=== PATIENT | male | born 1930 | race Caucasian/White ===

== ENCOUNTER 2017-07-06 13:49 | Inpatient (IN) | payer MEDICARE, BC ==
[~2017-07-06] VITALS: Ht 182.9 cm; Wt 67.1 kg
[~2017-07-06 13:49] MED LIST: ALBU18HF INH; AMLO5TAB2 PO; GLIP5TAB10 PO; GLIP5TAB22 PO; HYDR-3237 PO
[2017-07-06] MEDS ORDERED: SODIUM CHLORIDE 0.9% 1,000ML IVBOLUS ONE (14:30)
[2017-07-06] MEDS ORDERED: SODIUM CHLORIDE FLUSH 10ML SYR IVF ONE (14:30)
[2017-07-06 15:18] LABS: HEMATOCRIT 42.6 % (39.2-51.8); HEMOGLOBIN 13.7 g/dL (13.7-18.0); WHITE BLOOD COUNT 10.6 x10^3/uL (3.4-10)
[2017-07-06 15:32] LABS: ASPARTATE AMINO TRANSFERASE 12 U/L (15-37); BLOOD UREA NITROGEN 90 mg/dL (7-18)
[2017-07-06] MEDS ORDERED: D5%-0.45% NACL 1,000 ML IV SCH (16:45)
[2017-07-06] MEDS ORDERED: ONDANSETRON 2MG/ML, 2ML IVPush PRN (17:00)
[2017-07-06] MEDS ORDERED: ALBUTEROL SULFATE 2.5MG/0.5ML NPPB PRN (17:00)
[2017-07-06] MEDS ORDERED: LABETALOL 5MG/ML, 20ML IVPush PRN (17:00)
[2017-07-06] MEDS ORDERED: GUAIFENESIN/DM 200-20MG, 10ML UDC PO PRN (17:00)
[2017-07-06] MEDS ORDERED: ONDANSETRON ODT 4 MG PO PRN (17:00)
[2017-07-06] MEDS ORDERED: SODIUM CHLORIDE 0.45% 1,000 ML IV SCH (17:30)
[2017-07-06 17:56] LABS: BLOOD UREA NITROGEN 85 mg/dL (7-18)
[2017-07-06] MEDS ORDERED: PHARMACY MAY ADJ FOR RENAL FX MC PRN (18:00)
[2017-07-06] MEDS ORDERED: DEXTROSE 5% 1,000 ML IV SCH (18:00)
[2017-07-06 20:43] LABS: BLOOD UREA NITROGEN 83 mg/dL (7-18)
[2017-07-06] MEDS: FAMOTIDINE 20 MG/2 ML IVPush SCH (20:44)
[2017-07-06] MEDS: ENOXAPARIN 30 MG/0.3 ML SQ SCH (20:44)
[2017-07-06] MEDS: INSULIN DETEMIR 100 UNITS/ML, PEN SQ-INSULIN SCH (20:47)
[2017-07-06] MEDS: morphine SULFATE 10 MG/ML, 1ML IVPush PRN (21:55)
[2017-07-06] MEDS: CEFTAROLINE 600 MG in SODIUM CHLORIDE 0.9% 100 ML IV SCH (21:57)
[2017-07-06] MEDS: INSULIN ASPART 100 UNITS/ML, PEN SQ-INSULIN SCH (22:04)
[2017-07-07 02:06] LABS: BLOOD UREA NITROGEN 78 mg/dL (7-18)
[2017-07-07 03:35] LABS: HEMATOCRIT 39.8 % (39.2-51.8); HEMOGLOBIN 13.1 g/dL (13.7-18.0); WHITE BLOOD COUNT 9.9 x10^3/uL (3.4-10)
[2017-07-07 03:46] LABS: BLOOD UREA NITROGEN 77 mg/dL (7-18)
[2017-07-07] MEDS: CEFTAROLINE 600 MG in SODIUM CHLORIDE 0.9% 100 ML IV SCH (06:07)
[2017-07-07] MEDS: INSULIN DETEMIR 100 UNITS/ML, PEN SQ-INSULIN SCH (07:00)
[2017-07-07] MEDS: INSULIN ASPART 100 UNITS/ML, PEN SQ-INSULIN SCH ×4 (07:00→21:52)
[2017-07-07 09:20] LABS: BLOOD UREA NITROGEN 68 mg/dL (7-18)
[2017-07-07] MEDS: AMPICILLIN/SULBACTAM 3 GM in SODIUM CHLORIDE 0.9% 100 ML IV SCH ×3 (09:58→21:51)
[2017-07-07] MEDS: FAMOTIDINE 20 MG/2 ML IVPush SCH (09:59)
[2017-07-07] MEDS: LACTOBACILLUS CHEW TABLET PO SCH ×3 (09:59→21:51)
[2017-07-07 12:18] LABS: BLOOD UREA NITROGEN 64 mg/dL (7-18)
[2017-07-07] MEDS: D5%-0.45% NACL 1,000 ML IV SCH (15:29)
[2017-07-07] MEDS: ENOXAPARIN 30 MG/0.3 ML SQ SCH (16:27)
[2017-07-07] MEDS ORDERED: DEXTROSE 5% 1,000 ML IV SCH ×3 (18:00)
[2017-07-07 20:51] VITALS: BP 140/75
[2017-07-08 02:43] VITALS: BP 144/77
[2017-07-08] MEDS: D5%-0.45% NACL 1,000 ML IV SCH (03:41)
[2017-07-08] MEDS: AMPICILLIN/SULBACTAM 3 GM in SODIUM CHLORIDE 0.9% 100 ML IV SCH ×4 (03:41→20:12)
[2017-07-08 06:03] LABS: BLOOD UREA NITROGEN 52 mg/dL (7-18)
[2017-07-08 06:08] LABS: HEMATOCRIT 41.1 % (39.2-51.8); HEMOGLOBIN 13.6 g/dL (13.7-18.0); WHITE BLOOD COUNT 6.6 x10^3/uL (3.4-10)
[2017-07-08] MEDS: INSULIN ASPART 100 UNITS/ML, PEN SQ-INSULIN SCH ×4 (10:00→20:18)
[2017-07-08] MEDS: SODIUM CHLORIDE 0.45% 1,000 ML IV SCH (10:09)
[2017-07-08] MEDS: ENOXAPARIN 30 MG/0.3 ML SQ SCH (17:56)
[2017-07-09 02:00] VITALS: BP 140/75
[2017-07-09] MEDS: AMPICILLIN/SULBACTAM 3 GM in SODIUM CHLORIDE 0.9% 100 ML IV SCH ×4 (04:17→22:28)
[2017-07-09] MEDS: SODIUM CHLORIDE 0.45% 1,000 ML IV SCH ×2 (04:17→15:41)
[2017-07-09 06:42] LABS: BLOOD UREA NITROGEN 47 mg/dL (7-18)
[2017-07-09 06:57] VITALS: BP 132/75
[2017-07-09] MEDS: INSULIN ASPART 100 UNITS/ML, PEN SQ-INSULIN SCH ×4 (08:51→22:42)
[2017-07-09] MEDS: ENOXAPARIN 30 MG/0.3 ML SQ SCH (17:18)
[2017-07-09 20:00] VITALS: BP 132/69
[2017-07-09] MEDS: NEOSPORIN OINT. PKT 1 PACKET TP SCH (23:06)
[2017-07-10 02:00] VITALS: BP 148/56
[2017-07-10] MEDS: AMPICILLIN/SULBACTAM 3 GM in SODIUM CHLORIDE 0.9% 100 ML IV SCH ×3 (03:25→16:46)
[2017-07-10] MEDS: SODIUM CHLORIDE 0.45% 1,000 ML IV SCH ×2 (03:25→12:12)
[2017-07-10 07:58] LABS: BLOOD UREA NITROGEN 42 mg/dL (7-18)
[2017-07-10] MEDS: NEOSPORIN OINT. PKT 1 PACKET TP SCH ×2 (09:10→21:04)
[2017-07-10] MEDS: INSULIN ASPART 100 UNITS/ML, PEN SQ-INSULIN SCH ×4 (09:11→21:04)
[2017-07-10] MEDS: ENOXAPARIN 30 MG/0.3 ML SQ SCH (16:46)
[2017-07-10 20:18] VITALS: BP 158/78
[2017-07-11] MEDS: AMPICILLIN/SULBACTAM 3 GM in SODIUM CHLORIDE 0.9% 100 ML IV SCH ×3 (00:49→17:02)
[2017-07-11 01:56] VITALS: BP 138/62
[2017-07-11] MEDS: INSULIN ASPART 100 UNITS/ML, PEN SQ-INSULIN SCH ×4 (07:00→21:25)
[2017-07-11 07:55] VITALS: BP 138/69
[2017-07-11] MEDS: NEOSPORIN OINT. PKT 1 PACKET TP SCH ×2 (08:36→21:25)
[2017-07-11 15:03] VITALS: BP 130/73
[2017-07-11] MEDS: ENOXAPARIN 30 MG/0.3 ML SQ SCH (17:02)
[2017-07-11 20:14] VITALS: BP 117/70
[2017-07-12 01:00] VITALS: BP 125/69
[2017-07-12] MEDS: AMPICILLIN/SULBACTAM 3 GM in SODIUM CHLORIDE 0.9% 100 ML IV SCH ×2 (01:04→09:36)
[2017-07-12 05:47] LABS: HEMATOCRIT 36.3 % (39.2-51.8); HEMOGLOBIN 11.8 g/dL (13.7-18.0); WHITE BLOOD COUNT 5.3 x10^3/uL (3.4-10)
[2017-07-12] MEDS: INSULIN ASPART 100 UNITS/ML, PEN SQ-INSULIN SCH ×4 (07:00→20:44)
[2017-07-12 08:30] VITALS: BP 143/78
[2017-07-12] MEDS: NEOSPORIN OINT. PKT 1 PACKET TP SCH (09:36)
[2017-07-12 13:30] VITALS: BP 136/69
[2017-07-12] MEDS: ENOXAPARIN 30 MG/0.3 ML SQ SCH (17:12)
[2017-07-12 19:13] VITALS: BP 137/73
[2017-07-12] MEDS: DOXYCYCLINE 50 MG/5 ML ORAL SUSP PEG SCH (20:46)
[2017-07-12] MEDS: CLOTRIMAZOLE CRM 1%, 15GM TP SCH (20:46)
[2017-07-13 01:21] VITALS: BP 157/70
[2017-07-13 05:46] LABS: BLOOD UREA NITROGEN 35 mg/dL (7-18)
[2017-07-13 07:17] VITALS: BP 139/70
[2017-07-13] MEDS: DOXYCYCLINE 50 MG/5 ML ORAL SUSP PEG SCH ×2 (09:42→21:55)
[2017-07-13] MEDS: INSULIN ASPART 100 UNITS/ML, PEN SQ-INSULIN SCH ×4 (09:43→22:00)
[2017-07-13] MEDS: CLOTRIMAZOLE CRM 1%, 15GM TP SCH ×2 (11:34→21:55)
[2017-07-13 13:32] VITALS: BP 143/76
[2017-07-13] MEDS: ENOXAPARIN 40 MG/0.4 ML SQ SCH (17:42)
[2017-07-13 19:23] VITALS: BP 145/62
[2017-07-13] MEDS: morphine SULFATE 10 MG/ML, 1ML IVPush PRN (21:55)
[2017-07-14 01:13] VITALS: BP 103/64
[2017-07-14 07:20] VITALS: BP 107/64
[2017-07-14] MEDS: morphine SULFATE 10 MG/ML, 1ML IVPush PRN ×3 (08:27→14:25)
[2017-07-14] MEDS: DOXYCYCLINE 50 MG/5 ML ORAL SUSP PEG SCH ×2 (08:37→21:35)
[2017-07-14] MEDS: INSULIN ASPART 100 UNITS/ML, PEN SQ-INSULIN SCH ×4 (08:37→21:39)
[2017-07-14] MEDS: CLOTRIMAZOLE CRM 1%, 15GM TP SCH ×2 (08:38→21:35)
[2017-07-14] MEDS ORDERED: DOXY50SY PEG (09:50)
[2017-07-14] MEDS ORDERED: CLOT15CR5 TP (09:50)
[2017-07-14 10:45] LABS: BLOOD UREA NITROGEN 40 mg/dL (7-18)
[2017-07-14 12:33] VITALS: BP 104/57
[2017-07-14] MEDS: ENOXAPARIN 40 MG/0.4 ML SQ SCH (16:56)
[2017-07-14 20:00] VITALS: BP 115/70
[2017-07-15 02:00] VITALS: BP 102/61
[2017-07-15] MEDS: morphine SULFATE 10 MG/ML, 1ML IVPush PRN ×3 (02:43→16:52)
[2017-07-15 08:00] VITALS: BP 97/57
[2017-07-15] MEDS: CLOTRIMAZOLE CRM 1%, 15GM TP SCH ×2 (08:53→21:03)
[2017-07-15] MEDS: INSULIN ASPART 100 UNITS/ML, PEN SQ-INSULIN SCH ×4 (08:54→21:03)
[2017-07-15] MEDS: DOXYCYCLINE 50 MG/5 ML ORAL SUSP PEG SCH ×2 (08:54→21:02)
[2017-07-15] MEDS ORDERED: POLYETHYLENE GLYCOL 17 GM PACKET PO PRN (15:30)
[2017-07-15] MEDS: ENOXAPARIN 40 MG/0.4 ML SQ SCH (16:45)
[2017-07-15 19:55] VITALS: BP 104/58
[2017-07-16] MEDS: morphine SULFATE 10 MG/ML, 1ML IVPush PRN ×2 (01:23→10:45)
[2017-07-16 01:32] VITALS: BP 110/62
[2017-07-16 07:30] VITALS: BP 108/64
[2017-07-16] MEDS: INSULIN ASPART 100 UNITS/ML, PEN SQ-INSULIN SCH ×3 (10:46→16:00)
[2017-07-16] MEDS: DOXYCYCLINE 50 MG/5 ML ORAL SUSP PEG SCH (10:46)
[2017-07-16] MEDS: CLOTRIMAZOLE CRM 1%, 15GM TP SCH (10:48)
[2017-07-16] MEDS ORDERED: MAGNESIUM CITRATE 300ML ORAL SOL GT ONE (12:30)
[2017-07-16 13:15] VITALS: BP 93/52
[2017-07-16] MEDS: ENOXAPARIN 40 MG/0.4 ML SQ SCH (17:00)
[2017-07-16] MEDS ORDERED: FLU VACC QS2017-18 (36MOS+) UP/PF 0.5 ML IM-VACC ONE (17:00)
== END 2017-07-16 16:50 | DRG 393 ==
LOC: ED 17:55 → EDIP 18:13 → CCU 20:00 → 4WST 07-07 19:31 → 4EST 07-07 20:39
PROVIDERS: ADMIT Hospitalist; ATTEND Hospitalist
PROC: 0DH63UZ Insertion of Feeding Device into Stomach, Percutaneous Approach (ICD-10-PCS; principal; 2017-07-12)
DX: K94.22 Gastrostomy infection (principal); E43 Unspecified severe protein-calorie malnutrition; G92 Toxic encephalopathy; E11.649 Type 2 diabetes mellitus with hypoglycemia without coma; E11.65 Type 2 diabetes mellitus with hyperglycemia; R13.12 Dysphagia, oropharyngeal phase; E87.0 Hyperosmolality and hypernatremia; G20 Parkinson's disease; C61 Malignant neoplasm of prostate; D72.829 Elevated white blood cell count, unspecified; Z68.1 Body mass index [BMI] 19.9 or less, adult; Z66 Do not resuscitate; M06.9 Rheumatoid arthritis, unspecified; R26.2 Difficulty in walking, not elsewhere classified; E86.0 Dehydration; Y83.8 Other surgical procedures as the cause of abnormal reaction of the patient, or of later complication, without mention of misadventure at the time of the procedure; Y82.8 Other medical devices associated with adverse incidents; G25.0 Essential tremor; Z80.41 Family history of malignant neoplasm of ovary; Z90.79 Acquired absence of other genital organ(s); Z80.0 Family history of malignant neoplasm of digestive organs; Z80.6 Family history of leukemia; Z85.46 Personal history of malignant neoplasm of prostate; Z87.891 Personal history of nicotine dependence
CPT/HCPCS: 36415; 70450; 71010; 74230; 76705; 80048; 80053; 81003; 82140; 82607; 82746; 82962; 83036; 83605; 83735; 84100; 84145; 84439; 84443; 85025; 85610; 85651; 85730; 86140; 87040; 87081; 93005; 96360; 96361; J0295; J0712; J1650; J1815; J7070; J2270; J7030; S0028

== ENCOUNTER 2017-08-13 21:51 | Inpatient (IN) | payer MEDICARE, BC ==
[~2017-08-13] VITALS: Ht 185.4 cm; Wt 68.8 kg
[~2017-08-13 21:51] MED LIST changes: +CLOT15CR5 TP; +DOXY50SY PEG
[2017-08-13] MEDS ORDERED: SODIUM CHLORIDE 0.9% 1,000ML IVBOLUS ONE (23:00)
[2017-08-13 23:13] LABS: HEMATOCRIT 37.2 % (39.2-51.8); HEMOGLOBIN 12.4 g/dL (13.7-18.0); WHITE BLOOD COUNT 8.9 x10^3/uL (3.4-10)
[2017-08-13 23:24] LABS: ASPARTATE AMINO TRANSFERASE 18 U/L (15-37)
[2017-08-13 23:30] LABS: DIFF TOTAL CELLS COUNTED 100 CELL DIFF
[2017-08-13 23:32] LABS: VERIFY COUNTS? YES
[2017-08-13 23:33] LABS: ANISOCYTOSIS 1+; LARGE PLATELETS 1+; POIKILOCYTOSIS 1+
[2017-08-13 23:47] LABS: BLOOD UREA NITROGEN 114 mg/dL (7-18)
[2017-08-14] MEDS ORDERED: ACETAMINOPHEN 325 MG TABLET PO PRN (00:30)
[2017-08-14] MEDS ORDERED: DOCUSATE 100 MG CAPSULE PO PRN (00:30)
[2017-08-14 00:57] VITALS: BP 102/60
[2017-08-14] MEDS: SODIUM CHLORIDE 0.9% 1,000 ML IV SCH ×3 (01:27→21:16)
[2017-08-14] MEDS ORDERED: ALBUTEROL SULFATE 2.5 MG/3 ML NPPB PRN (01:30)
[2017-08-14] MEDS: HEPARIN 5,000 UNITS/ML, 1ML SQ SCH ×3 (04:59→21:00)
[2017-08-14 08:55] VITALS: BP 103/61
[2017-08-14] MEDS: CLOTRIMAZOLE CRM 1%, 15GM TP SCH ×2 (09:00→21:00)
[2017-08-14] MEDS: AMLODIPINE 5 MG TABLET PO SCH (09:00)
[2017-08-14 10:55] LABS: HEMATOCRIT 37.4 % (39.2-51.8); HEMOGLOBIN 12.4 g/dL (13.7-18.0); WHITE BLOOD COUNT 8.7 x10^3/uL (3.4-10)
[2017-08-14] MEDS: INSULIN ASPART 100 UNITS/ML, PEN SQ-INSULIN SCH ×3 (11:00→21:00)
[2017-08-14 11:07] LABS: BLOOD UREA NITROGEN 99 mg/dL (7-18)
[2017-08-14 11:19] LABS: DIFF TOTAL CELLS COUNTED 100 CELL DIFF
[2017-08-14 11:21] LABS: ANISOCYTOSIS 1+; VERIFY COUNTS? YES
[2017-08-14 14:58] VITALS: BP 102/67
[2017-08-14 22:41] VITALS: BP 111/54
[2017-08-15 03:14] VITALS: BP 127/71
[2017-08-15] MEDS: HEPARIN 5,000 UNITS/ML, 1ML SQ SCH ×3 (05:00→21:00)
[2017-08-15 06:02] LABS: HEMATOCRIT 35.9 % (39.2-51.8); HEMOGLOBIN 11.8 g/dL (13.7-18.0); WHITE BLOOD COUNT 8.9 x10^3/uL (3.4-10)
[2017-08-15 06:07] LABS: BLOOD UREA NITROGEN 78 mg/dL (7-18)
[2017-08-15] MEDS: SODIUM CHLORIDE 0.9% 1,000 ML IV SCH (06:37)
[2017-08-15] MEDS: AMLODIPINE 5 MG TABLET PO SCH (09:00)
[2017-08-15] MEDS: CLOTRIMAZOLE CRM 1%, 15GM TP SCH ×2 (09:00→21:15)
[2017-08-15 09:10] VITALS: BP 110/44
[2017-08-15] MEDS: INSULIN ASPART 100 UNITS/ML, PEN SQ-INSULIN SCH ×4 (09:38→21:00)
[2017-08-15] MEDS: D5%-0.45% NACL 1,000 ML IV SCH ×2 (13:39→21:16)
[2017-08-15 14:05] VITALS: BP 125/62
[2017-08-15 19:19] VITALS: BP 127/73
[2017-08-16 01:35] VITALS: BP 133/66
[2017-08-16] MEDS ORDERED: FUROSEMIDE 40 MG/4 ML IV ONE (03:00)
[2017-08-16] MEDS: HEPARIN 5,000 UNITS/ML, 1ML SQ SCH ×3 (05:00→20:44)
[2017-08-16 07:51] VITALS: BP 109/59
[2017-08-16] MEDS: INSULIN ASPART 100 UNITS/ML, PEN SQ-INSULIN SCH ×4 (08:06→20:45)
[2017-08-16] MEDS: CLOTRIMAZOLE CRM 1%, 15GM TP SCH ×2 (09:00→20:45)
[2017-08-16] MEDS: AMLODIPINE 5 MG TABLET PO SCH (09:00)
[2017-08-16] MEDS ORDERED: FUROSEMIDE 20 MG/2 ML IV ONE (09:30)
[2017-08-16] MEDS: CEFTRIAXONE PMX 1GM/50ML 50 ML IV SCH (12:16)
[2017-08-16] MEDS: DOXYCYCLINE 100 MG in DEXTROSE 5% 250 ML IV SCH (12:54)
[2017-08-16 13:43] LABS: HEMATOCRIT 41.2 % (39.2-51.8); HEMOGLOBIN 13.4 g/dL (13.7-18.0); WHITE BLOOD COUNT 14.3 x10^3/uL (3.4-10)
[2017-08-16 13:54] LABS: BLOOD UREA NITROGEN 59 mg/dL (7-18)
[2017-08-16 14:04] VITALS: BP 101/68
[2017-08-16 14:21] LABS: DIFF TOTAL CELLS COUNTED 100 CELL DIFF
[2017-08-16 14:48] LABS: ANISOCYTOSIS 1+; POLYCHROMASIA 1+; VERIFY COUNTS? YES
[2017-08-16] MEDS ORDERED: ALBUTEROL/IPRATROPIUM 2.5MG/0.5MG, 3 ML NPPB SCH (15:00)
[2017-08-16 15:05] LABS: IS PT STATUS REG ER OR PRE ER? NO
[2017-08-16] MEDS: SODIUM CHLORIDE INHALATION 3%, 4 ML NPPB SCH ×2 (17:16→23:57)
[2017-08-16] MEDS ORDERED: MAGNESIUM SULFATE PMX 2GM/50ML 50 ML IV ONE (17:30)
[2017-08-16] MEDS ORDERED: DILTIAZEM 5 MG/ML, 5ML IVPush ONE (17:30)
[2017-08-16] MEDS: ASPIRIN 81 MG TABLET CHEW PO SCH (17:30)
[2017-08-16] MEDS ORDERED: DOCUSATE 100 MG CAPSULE PO PRN (20:00)
[2017-08-16] MEDS ORDERED: ACETAMINOPHEN 325 MG TABLET PO PRN (20:00)
[2017-08-16 20:10] VITALS: BP_SYST 84; BP_SYST 87; BP_DIAS 43; BP_DIAS 46
[2017-08-16 20:29] LABS: IS PT STATUS REG ER OR PRE ER? YES
[2017-08-16 21:31] VITALS: BP 102/56
[2017-08-17] MEDS: DOXYCYCLINE 100 MG in DEXTROSE 5% 250 ML IV SCH ×2 (00:47→13:55)
[2017-08-17 01:43] VITALS: BP 92/48
[2017-08-17 05:20] LABS: HEMATOCRIT 34.5 % (39.2-51.8); HEMOGLOBIN 11.6 g/dL (13.7-18.0)
[2017-08-17 05:26] LABS: BLOOD UREA NITROGEN 64 mg/dL (7-18)
[2017-08-17] MEDS: HEPARIN 5,000 UNITS/ML, 1ML SQ SCH ×3 (05:30→20:12)
[2017-08-17 06:59] VITALS: BP 111/62
[2017-08-17] MEDS: INSULIN ASPART 100 UNITS/ML, PEN SQ-INSULIN SCH ×4 (08:15→20:12)
[2017-08-17] MEDS: ASPIRIN 81 MG TABLET CHEW PO SCH (08:16)
[2017-08-17] MEDS: AMLODIPINE 5 MG TABLET PO SCH (08:16)
[2017-08-17] MEDS: CLOTRIMAZOLE CRM 1%, 15GM TP SCH ×2 (08:17→20:16)
[2017-08-17] MEDS: SODIUM CHLORIDE INHALATION 3%, 4 ML NPPB SCH ×2 (10:23→16:57)
[2017-08-17] MEDS: CEFTRIAXONE PMX 1GM/50ML 50 ML IV SCH (11:17)
[2017-08-17 12:15] VITALS: BP 102/67
[2017-08-17] MEDS: DOXYCYCLINE 50 MG/5 ML ORAL SUSP PO SCH ×2 (15:46→20:16)
[2017-08-17] MEDS ORDERED: ACETAMINOPHEN 325 MG TABLET PO PRN (18:30)
[2017-08-17] MEDS ORDERED: DOCUSATE 100 MG CAPSULE PO PRN (18:30)
[2017-08-17 20:42] VITALS: BP 120/66
[2017-08-17] MEDS ORDERED: SODIUM CHLORIDE INHALATION 3%, 4 ML NPPB SCH (21:00)
[2017-08-18 01:51] VITALS: BP 119/73
[2017-08-18] MEDS: SODIUM CHLORIDE INHALATION 3%, 4 ML NPPB SCH ×4 (03:00→21:00)
[2017-08-18 04:51] LABS: HEMATOCRIT 32.9 % (39.2-51.8); HEMOGLOBIN 11.1 g/dL (13.7-18.0); WHITE BLOOD COUNT 7.8 x10^3/uL (3.4-10)
[2017-08-18 05:03] LABS: BLOOD UREA NITROGEN 62 mg/dL (7-18)
[2017-08-18 05:08] LABS: ASPARTATE AMINO TRANSFERASE 26 U/L (15-37)
[2017-08-18] MEDS: HEPARIN 5,000 UNITS/ML, 1ML SQ SCH ×3 (06:09→21:44)
[2017-08-18 07:03] VITALS: BP 122/64
[2017-08-18] MEDS: INSULIN ASPART 100 UNITS/ML, PEN SQ-INSULIN SCH ×4 (07:28→21:48)
[2017-08-18] MEDS: AMLODIPINE 5 MG TABLET PO SCH (08:40)
[2017-08-18] MEDS: CLOTRIMAZOLE CRM 1%, 15GM TP SCH ×2 (08:40→21:45)
[2017-08-18] MEDS: DOXYCYCLINE 50 MG/5 ML ORAL SUSP PO SCH ×2 (08:40→21:44)
[2017-08-18] MEDS: ASPIRIN 81 MG TABLET CHEW PO SCH (08:40)
[2017-08-18] MEDS: CEFTRIAXONE PMX 1GM/50ML 50 ML IV SCH (11:00)
[2017-08-18 12:30] VITALS: BP 133/68
[2017-08-18 20:16] VITALS: BP 125/66
[2017-08-19 02:58] VITALS: BP 118/69
[2017-08-19] MEDS: HEPARIN 5,000 UNITS/ML, 1ML SQ SCH ×2 (05:14→13:00)
[2017-08-19 07:00] VITALS: BP 133/66
[2017-08-19] MEDS: INSULIN ASPART 100 UNITS/ML, PEN SQ-INSULIN SCH ×2 (07:00→11:00)
[2017-08-19] MEDS: CLOTRIMAZOLE CRM 1%, 15GM TP SCH (10:02)
[2017-08-19] MEDS: DOXYCYCLINE 50 MG/5 ML ORAL SUSP PO SCH (10:02)
[2017-08-19] MEDS: ASPIRIN 81 MG TABLET CHEW PO SCH (10:02)
[2017-08-19] MEDS: AMLODIPINE 5 MG TABLET PO SCH (10:02)
[2017-08-19] MEDS: CEFTRIAXONE PMX 1GM/50ML 50 ML IV SCH (11:00)
[2017-08-19 13:09] VITALS: BP 118/52
[2017-08-19] MEDS ORDERED: CEFD300C37 PO (15:39)
[2017-08-19] MEDS ORDERED: ASPI-496 PO (15:40)
== END 2017-08-19 16:35 | DRG 177 ==
LOC: ED 23:39 → EDIP 08-14 00:01 → 4EST 08-14 01:06
PROVIDERS: ADMIT Family Medicine; ATTEND Hospitalist
DX: J69.0 Pneumonitis due to inhalation of food and vomit (principal); E43 Unspecified severe protein-calorie malnutrition; J96.00 Acute respiratory failure, unspecified whether with hypoxia or hypercapnia; G92 Toxic encephalopathy; N17.9 Acute kidney failure, unspecified; N18.4 Chronic kidney disease, stage 4 (severe); E87.0 Hyperosmolality and hypernatremia; R13.10 Dysphagia, unspecified; D68.69 Other thrombophilia; E11.22 Type 2 diabetes mellitus with diabetic chronic kidney disease; E11.65 Type 2 diabetes mellitus with hyperglycemia; I48.2 Chronic atrial fibrillation; E79.0 Hyperuricemia without signs of inflammatory arthritis and tophaceous disease; G20 Parkinson's disease; M06.9 Rheumatoid arthritis, unspecified; R29.6 Repeated falls; Z66 Do not resuscitate; G25.0 Essential tremor; E86.0 Dehydration; R62.7 Adult failure to thrive; D63.8 Anemia in other chronic diseases classified elsewhere; Z68.20 Body mass index [BMI] 20.0-20.9, adult; Z80.0 Family history of malignant neoplasm of digestive organs; Z80.41 Family history of malignant neoplasm of ovary; Z80.6 Family history of leukemia; Z85.46 Personal history of malignant neoplasm of prostate; Z87.891 Personal history of nicotine dependence; Z90.79 Acquired absence of other genital organ(s); Z93.1 Gastrostomy status
CPT/HCPCS: 36415; 70450; 71010; 80048; 80053; 81001; 82962; 83735; 83880; 84145; 84443; 84484; 85025; 87040; 87070; 87086; 87147; 87186; 87205; 93005; 93306; 94640; 96360; J0696; J1644; J1815; J1940; J7060; J3475; J7030

== ENCOUNTER 2018-09-22 10:29 | Inpatient (IN) | payer MEDICARE ==
[~2018-09-22] VITALS: Ht 177.8 cm; Wt 71.8 kg
[~2018-09-22 10:29] MED LIST changes: +AMLO-150 PO; -AMLO5TAB2 PO; +ASPI-496 PO; +CEFD300C37 PO; +MIDAZOLAM 1 MG/ML, 5ML ONE; +ROCURONIUM 10 MG/ML,10ML ONE
--- NOTE | 2018-09-22 10:50 | NUR ---
BIB PAUL. called 911 for AMS x several weeks, worse today. Oriented to self and place, not time. Hx parkinson's with bilat stimulators in chest. It appears as if the stimulator is growing out of his left scalp. Per , patient saw PCP for this wound and complete a week of Abx. Uses feeding tube in ABD for all intake. May take ice chips only PO. Mucous membrnaes dry. 500 NSmL admin by PAUL. at bedside. Will continue to monitor.
--- NOTE | 2018-09-22 11:20 | NUR ---
SPOKE WITH MD HUTTON IN DELAY OF ABX THERAPY FOR SEPTIC PT. DR. HUTTON WOULD LIKE TO WAIT UNTIL HE DOES THE LP AND CT OF THE HEAD IS COMPLETED PRIOR TYO ABX THERAPY BEING STARTED. SUP ANNETTE [place] INFORMED OF MD DECSION AND DELAY.
[2018-09-22] MEDS ORDERED: SODIUM CHLORIDE FLUSH 10ML SYR IVF ONE (11:30)
[2018-09-22] MEDS ORDERED: VANCOMYCIN PER PHARMACY MC ONE (11:30)
[2018-09-22] MEDS ORDERED: CEFTRIAXONE PMX 1GM/50ML 50 ML IVPB ONE (11:30)
[2018-09-22] MEDS ORDERED: VANCOMYCIN 1,100 MG in SODIUM CHLORIDE 0.9% 250 ML IV ONE (11:30)
[2018-09-22] MEDS ORDERED: SODIUM CHLORIDE 0.9% 1,000ML IVBOLUS ONE (11:30)
[2018-09-22] MEDS ORDERED: CEFTRIAXONE PMX 1GM/50ML 50 ML ONE (11:45)
[2018-09-22 11:46] LABS: BASOPHILS # (AUTO) 0.02 x10^3/uL (0-0.1); BASOPHILS % (AUTO) 0 % (0-1); EOSINOPHILS # (AUTO) 0.09 x10^3/uL (0-0.4); EOSINOPHILS % (AUTO) 1 % (1-7); LYMPHOCYTES # (AUTO) 0.57 x10^3/uL (1-3.4); LYMPHOCYTES % (AUTO) 4 % (22-44); MD NO; MEAN CORPUSCULAR HEMOGLOBIN 31.5 pg (27.5-34.5); MEAN CORPUSCULAR HGB CONC 32.4 g/dL (33.2-36.2); MEAN CORPUSCULAR VOLUME 97.4 fL (81-97); MEAN PLATELET VOLUME 11.3 fL (7.4-10.4); MONOCYTES # (AUTO) 0.46 x10^3/uL (0.2-0.8); MONOCYTES % (AUTO) 4 % (2-9); NEUTROPHILS # (AUTO) 11.99 x10^3/uL (1.8-6.8); NEUTROPHILS % (AUTO) 91 % (42-75); PLATELET COUNT 167 x10^3/uL (130-400); RED BLOOD COUNT 4.38 x10^6/uL (4.38-5.82); RED CELL DISTRIBUTION WIDTH 15.9 % (9.4-14.8)
[2018-09-22 11:55] LABS: INTERNATIONAL NORMALIZED RATIO 1.14 (0.93-1.1)
[2018-09-22 11:56] LABS: ALBUMIN 3.3 g/dL (3.4-5.0); ANION GAP 7 mmol/L (5-15); CALCIUM 9.4 mg/dL (8.5-10.1); CHLORIDE 128 mmol/L (98-107)
[2018-09-22 12:09] LABS: ALANINE AMINOTRANSFERASE 24 U/L (12-78); ALKALINE PHOSPHATASE 83 U/L (45-117); BILIRUBIN,TOTAL 0.7 mg/dL (0.2-1.0); CREATININE 2.78 mg/dL (0.7-1.3); TOTAL PROTEIN 8.1 g/dL (6.4-8.2)
[2018-09-22] MEDS ORDERED: LORazepam 2 MG/ML, 1ML ONE (12:33)
[2018-09-22] MEDS ORDERED: LIDOCAINE-MPF 1%, 5ML ONE (12:37)
--- NOTE | 2018-09-22 12:56 | NUR ---
ATTEMTPED LP X2 PER EMT AND NO CSF ACQUIRED.
[2018-09-22] MEDS ORDERED: LORazepam 2 MG/ML, 1ML IVPush ONE (13:00)
--- NOTE | 2018-09-22 13:00 | NUR ---
OSIEL BRYANT NOTE: ASSISTED MD HUTTON WITH LEILANI HEALY WITH LP. PATIE TOERATED FAIRLY WELL. PATIENT MEDICATED WITH ATIVAN. UPDATED ON PLAN OF CARE.
--- NOTE | 2018-09-22 13:16 | NUR ---
IVF BOLUS AND ABX THERAPYS STARTED. PT IS SLEEPING COMFORTABELY. NO DISTRESS NOTED.
[2018-09-22 13:51] LABS: ANION GAP 7 mmol/L (5-15); CHLORIDE 131 mmol/L (98-107); CREATININE 2.63 mg/dL (0.7-1.3)
[2018-09-22] MEDS ORDERED: SODIUM CHLORIDE 0.9% 1,000 ML IV SCH (13:58)
[2018-09-22] MEDS ORDERED: ONDANSETRON 2MG/ML, 2ML IVPush PRN (14:00)
--- NOTE | 2018-09-22 14:17 | NUR ---
LATE ENTRY, PT STILL COLD. HOT LINE STARTED WITH [facility] FLUIDS PER DR. JULIAN. PT REPOSITIONED IN BED. O2 REMAINS STABLE.
[2018-09-22] MEDS ORDERED: CALCIUM CHLORIDE 10%, 10ML SYR IVPush ONE (14:30)
[2018-09-22] MEDS ORDERED: VANCOMYCIN PER PHARMACY MC PRN (14:30)
--- NOTE | 2018-09-22 14:52 | NUR ---
NEPHRO, HOSPITALIST AND VENDORE REP TO BEDSIDE.
--- NOTE | 2018-09-22 14:52 | NUR ---
PT TO CONTINUE TO HAVE WARM FLUIDS. NEPHROLOGY WOULD LIKE ONLY 1 L OF NS AT THIS TIME.
--- NOTE | 2018-09-22 15:23 | NUR ---
PT TRANSFERRED TO PRE OP. NO COMPLICATIONS. OR TO BRING HOT LINE BACK AND GURNEY. SURGEON AT BEDSIDE AND WANTING TO DO ID IN OR NOW. REPORTED TO SURGEON THAT PT CANNOT GIVE CONSENT AND WILL BE TO PRE OP TO GIVE AND SIGN CONSENT.
[2018-09-22] MEDS ORDERED: REMIFENTANIL 2 MG ONE (15:38)
[2018-09-22] MEDS ORDERED: BACITRACIN 50,000 UNIT ONE (15:41)
[2018-09-22] MEDS: INSULIN LISPRO 100 UNITS/ML, PEN SQ-INSULIN SCH ×2 (16:00→21:00)
[2018-09-22] MEDS ORDERED: ROCURONIUM 10 MG/ML,10ML ONE (16:10)
[2018-09-22] MEDS ORDERED: ETOMIDATE 20 MG/10 ML ONE (16:10)
[2018-09-22] MEDS ORDERED: PROPOFOL 10 MG/ML, 20ML ONE (16:10)
[2018-09-22] MEDS ORDERED: BACITRACIN OINT 500U/GM, 15 GM ONE (16:39)
[2018-09-22] MEDS ORDERED: PHARMACOKINETIC MONITORING MC PRN (17:30)
[2018-09-22] MEDS ORDERED: PHARMACOKINETIC CONSULTATION MC ONE (17:30)
[2018-09-22] MEDS ORDERED: PROPOFOL 100 ML IV PRN ×2 (18:00→19:14)
[2018-09-22 18:35] LABS: BASOPHILS # (AUTO) 0.03 x10^3/uL (0-0.1); BASOPHILS % (AUTO) 0 % (0-1); EOSINOPHILS # (AUTO) 0.12 x10^3/uL (0-0.4); EOSINOPHILS % (AUTO) 1 % (1-7); HEMOGRAM NOTE RECHECKED; LYMPHOCYTES # (AUTO) 0.93 x10^3/uL (1-3.4); LYMPHOCYTES % (AUTO) 9 % (22-44); MD NO; MEAN CORPUSCULAR HGB CONC 32.7 g/dL (33.2-36.2); MEAN PLATELET VOLUME 11.3 fL (7.4-10.4); MONOCYTES # (AUTO) 0.49 x10^3/uL (0.2-0.8); MONOCYTES % (AUTO) 5 % (2-9); NEUTROPHILS # (AUTO) 8.34 x10^3/uL (1.8-6.8); NEUTROPHILS % (AUTO) 84 % (42-75); PLATELET COUNT 147 x10^3/uL (130-400); RED BLOOD COUNT 3.79 x10^6/uL (4.38-5.82); RED CELL DISTRIBUTION WIDTH 15.7 % (9.4-14.8)
[2018-09-22 18:50] LABS: ANION GAP 13 mmol/L (5-15); CALCIUM 8.6 mg/dL (8.5-10.1); CHLORIDE 130 mmol/L (98-107)
[2018-09-22 18:52] LABS: ALANINE AMINOTRANSFERASE 20 U/L (12-78); ALBUMIN 2.7 g/dL (3.4-5.0); ALKALINE PHOSPHATASE 71 U/L (45-117); BILIRUBIN,TOTAL 0.6 mg/dL (0.2-1.0); CREATININE 2.34 mg/dL (0.7-1.3); TOTAL PROTEIN 6.9 g/dL (6.4-8.2)
[2018-09-22] MEDS ORDERED: PHENYLEPHRINE 10 MG in SODIUM CHLORIDE 0.9% 249 ML IV PRN (19:14)
[2018-09-22] MEDS ORDERED: LACTULOSE 20 GM/30 ML UDC NG PRN (19:30)
[2018-09-22] MEDS ORDERED: SENNA/DOCUSATE TABLET NG PRN (19:30)
[2018-09-22] MEDS ORDERED: ALBUTEROL/IPRATROPIUM 2.5MG/0.5MG, 3 ML INLINE SCH (19:30)
[2018-09-22] MEDS ORDERED: PHARMACY MAY ADJ FOR RENAL FX MC SCH (19:30)
[2018-09-22] MEDS ORDERED: SENNOSIDES 8.8 MG/5 ML ORAL SOL NG PRN (19:30)
[2018-09-22] MEDS ORDERED: CEFTRIAXONE 500 MG in DEXTROSE 5% 50 ML IV SCH (19:30)
[2018-09-22] MEDS ORDERED: SODIUM CHLORIDE 0.9%, 500ML IV ONE (19:30)
[2018-09-22] MEDS ORDERED: BISACODYL 10 MG SUPP PR PRN (19:30)
[2018-09-22] MEDS ORDERED: FENTANYL PF 100 MCG/2ML IVPush PRN (19:30)
[2018-09-22] MEDS ORDERED: LIDOCAINE-MPF 1%, 2ML ENDO PRN (19:30)
[2018-09-22] MEDS: NOREPINEPHRINE 4 MG in SODIUM CHLORIDE 0.9% 246 ML IV PRN (19:54)
[2018-09-22 20:36] LABS: GLUCOSE, CSF 95 mg/dL (40-80); TOTAL PROTEIN,CSF 49 mg/dL (15-45)
[2018-09-22] MEDS: ALBUTEROL/IPRATROPIUM 2.5MG/0.5MG, 3 ML INLINE SCH (23:06)
[2018-09-22] MEDS: CEFTRIAXONE PMX 2GM/50ML 50 ML IV SCH (23:14)
[2018-09-22] MEDS: SODIUM CHLORIDE 0.45% 1,000 ML IV SCH (23:14)
[2018-09-23 01:29] LABS: MICROSCOPIC NOT IND
[2018-09-23 01:31] LABS: CULTURE INDICATED? NO
[2018-09-23 02:51] LABS: RAPID INFLUENZA A Negative (Negative); RAPID INFLUENZA B Negative (Negative)
[2018-09-23 03:03] LABS: ANION GAP 9 mmol/L (5-15); CALCIUM 8.2 mg/dL (8.5-10.1); CHLORIDE 131 mmol/L (98-107); CREATININE 2.23 mg/dL (0.7-1.3)
[2018-09-23] MEDS: ALBUTEROL/IPRATROPIUM 2.5MG/0.5MG, 3 ML INLINE SCH ×3 (03:27→11:00)
[2018-09-23] MEDS ORDERED: DEXTROSE 5% 1,000 ML IV SCH (03:30)
[2018-09-23 06:56] LABS: ALBUMIN 2.6 g/dL (3.4-5.0); ANION GAP 10 mmol/L (5-15); BASOPHILS # (AUTO) 0.05 x10^3/uL (0-0.1); BASOPHILS % (AUTO) 1 % (0-1); CHLORIDE 127 mmol/L (98-107); CREATININE 2.15 mg/dL (0.7-1.3); EOSINOPHILS # (AUTO) 0.25 x10^3/uL (0-0.4); EOSINOPHILS % (AUTO) 3 % (1-7); LYMPHOCYTES % (AUTO) 9 % (22-44); MD NO; MEAN CORPUSCULAR HEMOGLOBIN 32.1 pg (27.5-34.5); MEAN CORPUSCULAR HGB CONC 32.3 g/dL (33.2-36.2); MEAN CORPUSCULAR VOLUME 99.2 fL (81-97); MEAN PLATELET VOLUME 10.8 fL (7.4-10.4); MONOCYTES # (AUTO) 0.83 x10^3/uL (0.2-0.8); MONOCYTES % (AUTO) 9 % (2-9); NEUTROPHILS # (AUTO) 7.15 x10^3/uL (1.8-6.8); NEUTROPHILS % (AUTO) 79 % (42-75); PLATELET COUNT 134 x10^3/uL (130-400); RED BLOOD COUNT 3.75 x10^6/uL (4.38-5.82); RED CELL DISTRIBUTION WIDTH 15.6 % (9.4-14.8)
[2018-09-23 06:58] LABS: VANCOMYCIN,RANDOM 10.9 mcg/mL
[2018-09-23] MEDS: NOREPINEPHRINE 4 MG in SODIUM CHLORIDE 0.9% 246 ML IV PRN (07:17)
[2018-09-23] MEDS: INSULIN LISPRO 100 UNITS/ML, PEN SQ-INSULIN SCH ×4 (08:13→22:00)
[2018-09-23 08:39] LABS: CLOSTRIDIUM DIFFICILE ANTIGEN NEGATIVE; CLOSTRIDIUM DIFFICILE TOXIN NEGATIVE (Negative)
[2018-09-23 08:53] LABS: HEMOGLOBIN A1C 6.7 % (4.2-6.3)
[2018-09-23] MEDS ORDERED: CEFTRIAXONE PMX 2GM/50ML 50 ML IV SCH (09:00)
[2018-09-23] MEDS ORDERED: SODIUM CHLORIDE 0.9% 1,000ML IVBOLUS ONE (09:00)
[2018-09-23 10:23] LABS: ANION GAP 8 mmol/L (5-15); CALCIUM 8.2 mg/dL (8.5-10.1); CHLORIDE 128 mmol/L (98-107); CREATININE 2.08 mg/dL (0.7-1.3)
[2018-09-23] MEDS: CEFTRIAXONE PMX 2GM/50ML 50 ML IV SCH ×2 (11:00→22:57)
[2018-09-23] MEDS: SODIUM CHLORIDE 0.45% 1,000 ML IV SCH ×2 (11:05→20:10)
[2018-09-23 11:22] LABS: MICROSCOPIC AUTO
[2018-09-23 11:35] LABS: CREATININE,URINE RANDOM 48.3 mg/dL
[2018-09-23] MEDS: VANCOMYCIN PMX 1GM/200ML 200 ML IV SCH (12:03)
[2018-09-23] MEDS ORDERED: SODIUM CHLORIDE 0.9% 1,000 ML IV SCH ×2 (13:58→18:30)
[2018-09-23 16:44] LABS: ANION GAP 9 mmol/L (5-15); CALCIUM 7.3 mg/dL (8.5-10.1); CHLORIDE 126 mmol/L (98-107); CREATININE 1.69 mg/dL (0.7-1.3)
[2018-09-24] MEDS: INSULIN LISPRO 100 UNITS/ML, PEN SQ-INSULIN SCH ×4 (04:00→22:42)
[2018-09-24 04:33] LABS: BASOPHILS # (AUTO) 0.05 x10^3/uL (0-0.1); BASOPHILS % (AUTO) 1 % (0-1); EOSINOPHILS # (AUTO) 0.22 x10^3/uL (0-0.4); EOSINOPHILS % (AUTO) 3 % (1-7); LYMPHOCYTES # (AUTO) 0.85 x10^3/uL (1-3.4); LYMPHOCYTES % (AUTO) 11 % (22-44); MD NO; MEAN CORPUSCULAR HEMOGLOBIN 31.6 pg (27.5-34.5); MEAN CORPUSCULAR HGB CONC 32.7 g/dL (33.2-36.2); MEAN CORPUSCULAR VOLUME 96.8 fL (81-97); MEAN PLATELET VOLUME 11.1 fL (7.4-10.4); MONOCYTES % (AUTO) 8 % (2-9); NEUTROPHILS # (AUTO) 5.85 x10^3/uL (1.8-6.8); NEUTROPHILS % (AUTO) 77 % (42-75); PLATELET COUNT 149 x10^3/uL (130-400); RED BLOOD COUNT 3.64 x10^6/uL (4.38-5.82)
[2018-09-24 04:47] LABS: ALANINE AMINOTRANSFERASE 23 U/L (12-78); ALBUMIN 2.4 g/dL (3.4-5.0); ANION GAP 9 mmol/L (5-15); CALCIUM 7.8 mg/dL (8.5-10.1); CHLORIDE 122 mmol/L (98-107); CREATININE 1.44 mg/dL (0.7-1.3)
[2018-09-24 04:49] LABS: ALKALINE PHOSPHATASE 68 U/L (45-117); BILIRUBIN,TOTAL 0.3 mg/dL (0.2-1.0); TOTAL PROTEIN 6.3 g/dL (6.4-8.2)
[2018-09-24] MEDS ORDERED: MAGNESIUM SULFATE PMX 4GM/100M 100 ML IVPB ONE (06:00)
[2018-09-24] MEDS: SODIUM CHLORIDE 0.45% 1,000 ML IV SCH (06:01)
[2018-09-24] MEDS ORDERED: SODIUM CHLORIDE 0.9%, 500ML IVBOLUS ONE (09:30)
[2018-09-24] MEDS: HYDROCORTISONE 100 MG INJ. IVPush SCH ×2 (10:01→17:46)
[2018-09-24] MEDS: CEFTRIAXONE PMX 2GM/50ML 50 ML IV SCH ×2 (11:43→22:42)
[2018-09-24] MEDS: NOREPINEPHRINE 4 MG in SODIUM CHLORIDE 0.9% 246 ML IV PRN (17:46)
[2018-09-25] MEDS: HYDROCORTISONE 100 MG INJ. IVPush SCH ×3 (03:05→17:00)
[2018-09-25 04:42] LABS: BASOPHILS # (AUTO) 0.03 x10^3/uL (0-0.1); BASOPHILS % (AUTO) 0 % (0-1); EOSINOPHILS # (AUTO) 0.27 x10^3/uL (0-0.4); EOSINOPHILS % (AUTO) 3 % (1-7); LYMPHOCYTES # (AUTO) 0.76 x10^3/uL (1-3.4); LYMPHOCYTES % (AUTO) 8 % (22-44); MD NO; MEAN CORPUSCULAR HGB CONC 33.3 g/dL (33.2-36.2); MEAN CORPUSCULAR VOLUME 96.1 fL (81-97); MEAN PLATELET VOLUME 11.2 fL (7.4-10.4); MONOCYTES % (AUTO) 6 % (2-9); NEUTROPHILS # (AUTO) 8.46 x10^3/uL (1.8-6.8); NEUTROPHILS % (AUTO) 84 % (42-75); PLATELET COUNT 176 x10^3/uL (130-400); RED BLOOD COUNT 3.85 x10^6/uL (4.38-5.82); RED CELL DISTRIBUTION WIDTH 14.9 % (9.4-14.8)
[2018-09-25 04:55] LABS: ALBUMIN 2.2 g/dL (3.4-5.0); ANION GAP 8 mmol/L (5-15); CALCIUM 7.7 mg/dL (8.5-10.1); CHLORIDE 121 mmol/L (98-107)
[2018-09-25 05:00] LABS: ALANINE AMINOTRANSFERASE 25 U/L (12-78); ALKALINE PHOSPHATASE 69 U/L (45-117); BILIRUBIN,TOTAL 0.3 mg/dL (0.2-1.0); CREATININE 1.32 mg/dL (0.7-1.3); TOTAL PROTEIN 6.3 g/dL (6.4-8.2); TRIGLYCERIDES 105 mg/dL (50-200)
[2018-09-25] MEDS: INSULIN LISPRO 100 UNITS/ML, PEN SQ-INSULIN SCH ×4 (05:31→23:09)
[2018-09-25] MEDS: SODIUM CHLORIDE 0.45% 1,000 ML IV SCH ×3 (05:31→23:09)
[2018-09-25] MEDS ORDERED: ALBUMIN HUMAN 25% 100 ML IV SCH (09:30)
[2018-09-25] MEDS: CEFTRIAXONE PMX 2GM/50ML 50 ML IV SCH ×2 (10:55→22:59)
[2018-09-25] MEDS: MIDODRINE 5 MG TABLET PO SCH ×3 (11:02→21:24)
[2018-09-25] MEDS: VANCOMYCIN PMX 1GM/200ML 200 ML IV SCH (11:03)
[2018-09-25] MEDS: NOREPINEPHRINE 4 MG in SODIUM CHLORIDE 0.9% 246 ML IV PRN (13:28)
[2018-09-26] MEDS: CEFTRIAXONE PMX 2GM/50ML 50 ML IV SCH ×2 (01:30→11:58)
[2018-09-26] MEDS: HYDROCORTISONE 100 MG INJ. IVPush SCH ×2 (02:02→08:39)
[2018-09-26 04:29] LABS: O2 FLOW ROOM AIR L/min
[2018-09-26 04:42] LABS: ALANINE AMINOTRANSFERASE 30 U/L (12-78); ALBUMIN 1.9 g/dL (3.4-5.0); ANION GAP 7 mmol/L (5-15); CALCIUM 7.8 mg/dL (8.5-10.1); CHLORIDE 119 mmol/L (98-107); CREATININE 1.48 mg/dL (0.7-1.3)
[2018-09-26 04:45] LABS: ALKALINE PHOSPHATASE 65 U/L (45-117); BILIRUBIN,TOTAL 0.3 mg/dL (0.2-1.0); TOTAL PROTEIN 5.8 g/dL (6.4-8.2)
[2018-09-26] MEDS: INSULIN LISPRO 100 UNITS/ML, PEN SQ-INSULIN SCH ×4 (05:06→23:22)
[2018-09-26 05:23] LABS: BASOPHILS % (AUTO) 0 % (0-1); EOSINOPHILS % (AUTO) 0 % (1-7); LYMPHOCYTES # (AUTO) 0.52 x10^3/uL (1-3.4); LYMPHOCYTES % (AUTO) 6 % (22-44); MD SCAN; MEAN CORPUSCULAR HEMOGLOBIN 32.8 pg (27.5-34.5); MEAN CORPUSCULAR HGB CONC 33.9 g/dL (33.2-36.2); MEAN CORPUSCULAR VOLUME 96.5 fL (81-97); MEAN PLATELET VOLUME 11.3 fL (7.4-10.4); MONOCYTES # (AUTO) 0.32 x10^3/uL (0.2-0.8); MONOCYTES % (AUTO) 3 % (2-9); NEUTROPHILS # (AUTO) 8.63 x10^3/uL (1.8-6.8); NEUTROPHILS % (AUTO) 91 % (42-75); PLATELET COUNT 139 x10^3/uL (130-400); RED BLOOD COUNT 3.61 x10^6/uL (4.38-5.82); RED CELL DISTRIBUTION WIDTH 15.1 % (9.4-14.8)
[2018-09-26] MEDS: SODIUM CHLORIDE 0.45% 1,000 ML IV SCH (08:34)
[2018-09-26] MEDS: MIDODRINE 5 MG TABLET PO SCH ×3 (08:39→21:07)
[2018-09-26] MEDS: DOXYCYCLINE 100 MG in DEXTROSE 5% 250 ML IV SCH ×2 (10:29→23:15)
[2018-09-26] MEDS: FLUDROCORTISONE 0.1 MG TABLET PO SCH (10:29)
[2018-09-27] MEDS: CEFTRIAXONE 1,000 MG IM SCH ×4 (03:20→18:09)
[2018-09-27 04:00] VITALS: BP 112/60
[2018-09-27 04:42] LABS: BASOPHILS # (AUTO) 0.01 x10^3/uL (0-0.1); BASOPHILS % (AUTO) 0 % (0-1); EOSINOPHILS % (AUTO) 0 % (1-7); LYMPHOCYTES % (AUTO) 9 % (22-44); MD NO; MEAN CORPUSCULAR HEMOGLOBIN 31.6 pg (27.5-34.5); MEAN CORPUSCULAR HGB CONC 32.8 g/dL (33.2-36.2); MEAN CORPUSCULAR VOLUME 96.2 fL (81-97); MEAN PLATELET VOLUME 11.1 fL (7.4-10.4); MONOCYTES # (AUTO) 0.96 x10^3/uL (0.2-0.8); MONOCYTES % (AUTO) 9 % (2-9); NEUTROPHILS # (AUTO) 8.71 x10^3/uL (1.8-6.8); NEUTROPHILS % (AUTO) 82 % (42-75); PLATELET COUNT 183 x10^3/uL (130-400); RED BLOOD COUNT 3.84 x10^6/uL (4.38-5.82); RED CELL DISTRIBUTION WIDTH 15.5 % (9.4-14.8)
[2018-09-27 04:45] LABS: ALBUMIN 2.1 g/dL (3.4-5.0); ANION GAP 9 mmol/L (5-15); CHLORIDE 115 mmol/L (98-107)
[2018-09-27 04:48] LABS: ALANINE AMINOTRANSFERASE 33 U/L (12-78); ALKALINE PHOSPHATASE 64 U/L (45-117); BILIRUBIN,TOTAL 0.2 mg/dL (0.2-1.0); CREATININE 1.36 mg/dL (0.7-1.3); TOTAL PROTEIN 5.9 g/dL (6.4-8.2)
[2018-09-27] MEDS: INSULIN LISPRO 100 UNITS/ML, PEN SQ-INSULIN SCH ×5 (05:36→21:35)
[2018-09-27] MEDS: DOXYCYCLINE 50 MG/5 ML ORAL SUSP PO SCH ×2 (10:49→21:21)
[2018-09-27] MEDS: MIDODRINE 5 MG TABLET PO SCH ×3 (10:49→21:21)
[2018-09-27] MEDS: FLUDROCORTISONE 0.1 MG TABLET PO SCH (10:49)
[2018-09-27] MEDS: INSULIN GLARGINE 100 UNITS/ML, PEN SQ-INSULIN SCH ×2 (11:24→21:35)
[2018-09-27 12:57] LABS: QUANTIFERON TB Ag1-NIL 0 (0.000-0.000)
[2018-09-28 04:32] LABS: BASOPHILS # (AUTO) 0.01 x10^3/uL (0-0.1); BASOPHILS % (AUTO) 0 % (0-1); EOSINOPHILS # (AUTO) 0.09 x10^3/uL (0-0.4); EOSINOPHILS % (AUTO) 2 % (1-7); LYMPHOCYTES % (AUTO) 12 % (22-44); MD NO; MEAN CORPUSCULAR HEMOGLOBIN 32.2 pg (27.5-34.5); MEAN CORPUSCULAR HGB CONC 33.2 g/dL (33.2-36.2); MEAN CORPUSCULAR VOLUME 96.8 fL (81-97); MEAN PLATELET VOLUME 10.5 fL (7.4-10.4); MONOCYTES # (AUTO) 0.74 x10^3/uL (0.2-0.8); MONOCYTES % (AUTO) 12 % (2-9); NEUTROPHILS # (AUTO) 4.81 x10^3/uL (1.8-6.8); NEUTROPHILS % (AUTO) 75 % (42-75); PLATELET COUNT 135 x10^3/uL (130-400); RED BLOOD COUNT 3.71 x10^6/uL (4.38-5.82); RED CELL DISTRIBUTION WIDTH 15.4 % (9.4-14.8)
[2018-09-28 04:46] VITALS: BP 106/48
[2018-09-28] MEDS: INSULIN LISPRO 100 UNITS/ML, PEN SQ-INSULIN SCH ×4 (05:28→22:06)
[2018-09-28] MEDS: CEFTRIAXONE 1,000 MG IM SCH ×2 (05:29→19:52)
[2018-09-28] MEDS: FLUDROCORTISONE 0.1 MG TABLET PO SCH (08:28)
[2018-09-28] MEDS: MIDODRINE 5 MG TABLET PO SCH ×3 (08:28→21:35)
[2018-09-28] MEDS: DOXYCYCLINE 50 MG/5 ML ORAL SUSP PO SCH ×2 (08:28→21:35)
[2018-09-28 11:00] VITALS: BP 130/71
[2018-09-28] MEDS: INSULIN GLARGINE 100 UNITS/ML, PEN SQ-INSULIN SCH ×2 (11:25→22:06)
[2018-09-28] MEDS ORDERED: ZIPRASIDONE 20 MG INJ IM PRN (14:00)
[2018-09-28 19:28] VITALS: BP 115/66
[2018-09-29 00:19] VITALS: BP 124/67
[2018-09-29 05:17] LABS: BASOPHILS # (AUTO) 0.02 x10^3/uL (0-0.1); BASOPHILS % (AUTO) 0 % (0-1); EOSINOPHILS # (AUTO) 0.22 x10^3/uL (0-0.4); EOSINOPHILS % (AUTO) 3 % (1-7); LYMPHOCYTES # (AUTO) 0.81 x10^3/uL (1-3.4); LYMPHOCYTES % (AUTO) 10 % (22-44); MD NO; MEAN CORPUSCULAR HEMOGLOBIN 32.4 pg (27.5-34.5); MEAN CORPUSCULAR HGB CONC 33.6 g/dL (33.2-36.2); MEAN CORPUSCULAR VOLUME 96.6 fL (81-97); MEAN PLATELET VOLUME 10.4 fL (7.4-10.4); MONOCYTES % (AUTO) 9 % (2-9); NEUTROPHILS % (AUTO) 77 % (42-75); PLATELET COUNT 132 x10^3/uL (130-400); RED BLOOD COUNT 3.47 x10^6/uL (4.38-5.82); RED CELL DISTRIBUTION WIDTH 15.6 % (9.4-14.8)
[2018-09-29] MEDS: CEFTRIAXONE 1,000 MG IM SCH (07:50)
[2018-09-29] MEDS: INSULIN LISPRO 100 UNITS/ML, PEN SQ-INSULIN SCH ×3 (07:51→16:00)
[2018-09-29 08:50] VITALS: BP 136/60
[2018-09-29] MEDS: MIDODRINE 5 MG TABLET PO SCH ×2 (09:16→16:38)
[2018-09-29] MEDS: INSULIN GLARGINE 100 UNITS/ML, PEN SQ-INSULIN SCH (09:17)
[2018-09-29] MEDS: DOXYCYCLINE 50 MG/5 ML ORAL SUSP PO SCH (09:18)
[2018-09-29 14:50] VITALS: BP 133/55
== END 2018-09-29 18:11 | disposition hospice, home (50) | DRG 25 ==
LOC: ED 10:45 → EDIP 13:31 → CCU 17:08 → ICU 09-24 07:14 → 3NW 09-28 10:30
PROVIDERS: ADMIT Internal Medicine; ATTEND Internal Medicine
PROC: 0T9B70Z Drainage of Bladder with Drainage Device, Via Natural or Artificial Opening (ICD-10-PCS; 2018-09-22)
PROC: 00JU3ZZ Inspection of Spinal Canal, Percutaneous Approach (ICD-10-PCS; 2018-09-22)
PROC: 00P00MZ Removal of Neurostimulator Lead from Brain, Open Approach (ICD-10-PCS; principal; 2018-09-22 15:00)
DX: T85.731A Infection and inflammatory reaction due to implanted electronic neurostimulator of brain, electrode (lead), initial encounter (principal); A41.02 Sepsis due to Methicillin resistant Staphylococcus aureus; E43 Unspecified severe protein-calorie malnutrition; G93.41 Metabolic encephalopathy; J96.02 Acute respiratory failure with hypercapnia; N17.0 Acute kidney failure with tubular necrosis; R65.21 Severe sepsis with septic shock; E27.40 Unspecified adrenocortical insufficiency; Z99.11 Dependence on respirator [ventilator] status; E87.0 Hyperosmolality and hypernatremia; Z68.22 Body mass index [BMI] 22.0-22.9, adult; D64.9 Anemia, unspecified; E11.21 Type 2 diabetes mellitus with diabetic nephropathy; E11.22 Type 2 diabetes mellitus with diabetic chronic kidney disease; E11.65 Type 2 diabetes mellitus with hyperglycemia; E86.0 Dehydration; E86.1 Hypovolemia; E87.5 Hyperkalemia; F03.90 Unspecified dementia, unspecified severity, without behavioral disturbance, psychotic disturbance, mood disturbance, and anxiety; G20 Parkinson's disease; G25.0 Essential tremor; G93.89 Other specified disorders of brain; I12.9 Hypertensive chronic kidney disease with stage 1 through stage 4 chronic kidney disease, or unspecified chronic kidney disease; J44.9 Chronic obstructive pulmonary disease, unspecified; J84.10 Pulmonary fibrosis, unspecified; M06.9 Rheumatoid arthritis, unspecified; M19.90 Unspecified osteoarthritis, unspecified site; N18.3 Chronic kidney disease, stage 3 (moderate); R13.10 Dysphagia, unspecified; R62.7 Adult failure to thrive; Z66 Do not resuscitate; Z74.01 Bed confinement status; Z80.0 Family history of malignant neoplasm of digestive organs; Z80.41 Family history of malignant neoplasm of ovary; Z80.6 Family history of leukemia; Z85.46 Personal history of malignant neoplasm of prostate; Z87.891 Personal history of nicotine dependence; Z90.79 Acquired absence of other genital organ(s); Z93.1 Gastrostomy status; N25.0 Renal osteodystrophy; Z79.82 Long term (current) use of aspirin; Z79.899 Other long term (current) drug therapy
CPT/HCPCS: 36415; 36600; 70450; 71045; 74018; 76770; 80048; 80053; 80069; 80202; 81001; 81003; 82306; 82330; 82436; 82533; 82570; 82728; 82803; 82945; 82962; 83036; 83540; 83550; 83605; 83735; 83935; 83970; 84100; 84133; 84145; 84156; 84157; 84295; 84300; 84443; 84478; 84550; 85025; 85610; 85730; 86480; 87040; 87070; 87075; 87076; 87077; 87081; 87186; 87205; 87252; 87324; 87400; 89051; 93005; 94002; 94003; 94640; 96365; 96366; 96375; 99291; G0378; J0696; J2250; J2704; J3010; J3370; J3486; J7060; J7070; J7620; J1720; J1815; J2060; J3475; J7030; J7040; J7050